=== PATIENT | female | born 1995 | race Caucasian/White ===

== ENCOUNTER 2017-01-03 05:55 | Inpatient (IN) | payer OTHER ==
[~2017-01-03] VITALS: Ht 152.4 cm; Wt 76.5 kg
[~2017-01-03 05:55] MED LIST: IBUP-1542 PO; [UNRECOGNIZED DRUG - OTHER]
[2017-01-03 06:29] VITALS: BP 122/64; PULSE 100; RESP 18; Ht 152.4 cm; Wt 76.5 kg
[2017-01-03] MEDS ORDERED: LACTATED RINGER'S 1,000 ML IV PRN (06:30)
[2017-01-03] MEDS ORDERED: PREN-93 PO (06:32)
[2017-01-03] MEDS: LACTATED RINGER'S 1,000 ML IV SCH ×3 (06:55→22:34)
[2017-01-03] MEDS ORDERED: METHYLERGONOVINE 0.2 MG INJ IM PRN ×2 (07:00→21:00)
[2017-01-03] MEDS ORDERED: AMPICILLIN 2 GM/NS (PMX) 100 ML IV ONE (07:00)
[2017-01-03] MEDS ORDERED: IBUPROFEN 600 MG TAB PO PRN (07:00)
[2017-01-03] MEDS ORDERED: MISOPROSTOL 200 MCG TAB PR PRN ×2 (07:00→21:00)
[2017-01-03] MEDS ORDERED: LIDOCAINE 1% (MPF) 30 ML INJ INJ PRN (07:00)
[2017-01-03] MEDS ORDERED: OXYTOCIN 30 UNITS/LR 500 ML IV PRN ×2 (07:00→21:00)
[2017-01-03] MEDS ORDERED: BUTORPHANOL 2 MG INJ IV PRN ×2 (07:00)
[2017-01-03] MEDS ORDERED: CARBOPROST 250 MCG INJ IM PRN ×2 (07:00→21:00)
[2017-01-03] MEDS ORDERED: ACETAMINOPHEN/CODEINE #3 TAB PO PRN ×3 (07:00→21:00)
[2017-01-03 07:27] LABS: ADD SCAN DIFF NO
[2017-01-03 07:31] LABS: BASOPHILS % 0.2 % (0.0-2.0); EOSINOPHILS # 0.1 10^3/ul (0.0-0.5); EOSINOPHILS % 0.6 % (0.0-7.0); HEMATOCRIT 33.4 % (37.0-47.0); HEMOGLOBIN 10.6 g/dl (12.0-16.0); LYMPHOCYTES # 2.4 10^3/ul (0.8-2.9); LYMPHOCYTES % 22.4 % (15.0-51.0); MEAN CORPUSCULAR HEMOGLOBIN 24.8 pg (29.0-33.0); MEAN CORPUSCULAR HGB CONC 31.7 g/dl (32.0-37.0); MEAN PLATELET VOLUME 11.5 fl (7.4-10.4); MONOCYTE # 0.8 10^3/ul (0.3-0.9); MONOCYTES % 7.5 % (0.0-11.0); NEUTROPHIL # 7.5 10^3/ul (1.6-7.5); NEUTROPHILS % 68.9 % (39.0-77.0); PLATELET COUNT 249 10^3/UL (140-415); RED BLOOD COUNT 4.28 10^6/ul (4.20-5.40); RED CELL DISTRIBUTION WIDTH 13.9 % (11.5-14.5); WHITE BLOOD COUNT 10.9 10^3/ul (4.8-10.8)
[2017-01-03 07:57] LABS: INR 1.01; PROTIME 13.3 Sec (12.2-14.2)
[2017-01-03 07:58] LABS: ALANINE AMINOTRANSFERASE 22 IU/L (13-69); ALBUMIN 3.9 g/dl (3.3-4.9); ALBUMIN/GLOBULIN RATIO 1.34; ALKALINE PHOSPHATASE 191 IU/L (42-121); ANION GAP 16 (8-16); ASPARTATE AMINO TRANSFERASE 20 IU/L (15-46); BILIRUBIN,INDIRECT 0.2 mg/dl (0-1.1); BILIRUBIN,TOTAL 0.2 mg/dl (0.2-1.3); BLOOD UREA NITROGEN 9 mg/dl (7-20); CALCIUM 9.7 mg/dl (8.4-10.2); CARBON DIOXIDE 20 mmol/L (21-31); CHLORIDE 107 mmol/L (97-110); CREATININE 0.59 mg/dl (0.44-1.00); GLUCOSE 76 mg/dl (70-220); PARTIAL THROMBOPLASTIN TIME 25.6 Sec (25.0-35.0); SODIUM 139 mmol/L (135-144); TOTAL PROTEIN 6.8 g/dl (6.1-8.1)
[2017-01-03 09:09] LABS: ADD UMIC YES; UR BILIRUBIN (Dip) NEGATIVE (NEGATIVE); UR BLOOD (Dip) 3+ (NEGATIVE); UR CLARITY SLIGHTLY CLOUDY (CLEAR); UR COLOR LT. YELLOW (YELLOW); UR GLUCOSE (Dip) NEGATIVE (NEGATIVE); UR KETONES (Dip) NEGATIVE (NEGATIVE); UR LEUKOCYTE ESTERASE (Dip) NEGATIVE (NEGATIVE); UR NITRITE (Dip) NEGATIVE (NEGATIVE); UR TOTAL PROTEIN (Dip) 1+ (NEGATIVE); UR UROBILINOGEN (Dip) 0.2 E.U./dL (0.1-1.0)
[2017-01-03 09:36] LABS: BACTERIA,URINE FEW
[2017-01-03] MEDS: AMPICILLIN 1 GM/NS (PMX) 50 ML IV SCH ×2 (11:02→15:07)
[2017-01-03] MEDS ORDERED: MINERAL OIL LIGHT 10 ML VIAL TOP ONE (15:30)
[2017-01-03] MEDS: OXYTOCIN 30 UNITS/LR 500 ML IV SCH ×2 (15:53→17:46)
--- NOTE | 2017-01-03 17:56 | HP ---
Date/Time of Note Date/Time of Note DATE: 01/03/17 TIME: 17:53 OB - History Hx of Present Free Text/Dictation admitted for C/O SROM at 0400 AM Last Menstrual Period: Jul 05, 2016 Estimated Due Date: Jan 17, 2017 : 2 Para: 1 Care: Good Care Ultrasounds: Normal mid trimester US Obstetrical Complications: None Medical Complications: None Past Family/Social History * Past Medical, Surgical, Family and Obstetric Histories reviewed from chart. Blood Type: B+ Rubella: immune RPR/VDRL: Negative GBS Status: Negative HBsAG: Negative OB Admission Exam Vital Signs Vital Signs Vital Signs Date Time Temp Pulse Resp B/P Pulse Ox O2 Delivery O2 Flow Rate FiO2 01/03/17 06:29 98.1 100 18 122/64 Room Air Physical Exam HEENT: WNL Heart: Rhythm Normal Lungs: Clear, Equal Abdomen: WNL Extremities: Normal Reflexes: Normal Cervical Dilatation: 3cm Effacement: 75% Station: -3 Membranes: Ruptured Amniotic Fluid: Clear Heart Rate: 130's Accelerations: Accelerations Present Decelerations: No Decelerations Varibility: Moderate Contractions on Admission: < 5 Minutes Apart Date/Time Contractions Began: 01/13/20174 Frequency of Contractions: q5 Duration: >60 seconds Intensity: Mild Last 72 hours Lab Results CBC & BMP 01/03/17 05:55 Liver Function Test 01/03/17 05:55 Alanine Aminotransferase (ALT/SGPT) 22 Albumin 3.9 Alkaline Phosphatase 191 H Aspartate Amino Transf (AST/SGOT) 20 Direct Bilirubin 0.00 Total Protein 6.8 OB Assessment/Plan Other Assessment: SROM at 38 weeks Other plan: Augment labor KRYSTA AGUILAR MD Jan 03, 2017 17:55
--- NOTE | 2017-01-03 17:59 | LDN ---
Date/Time of Note Date/Time of Note DATE: 01/03/17 TIME: 17:56 Delivery Summary of a viable infant over intact perineum Weeks of Gestation 38 Placenta Delivered: Spontaneously, Intact & Complete Meconium: none Episiotomy: No Laceration repair: paraurethral lacaration and superficial vulvar laceration were closed with 2 0 Chromic Anesthesia type: Local Sponge & Needle done & correct: Yes All needle counts correct: Yes Any foreign bodies felt in the: No Problems: Infant Delivery Information Sex Sex: male Apgars 1 Minute: 9 5 Minute: 9 Suctioning Nose & mouth suctioned at aixa: Yes Delee suction performed: No Umbilical Cord Umbilical cord with: 3 Vessels Cord presentations: no nuchal cord Cord Blood was obtained: Yes Mother & Baby Disposition Disposition Mom & Baby to Maternity; Good: Yes (mother and baby were recovered in good condition ) Mom transferred to: Other (maternity ) Baby to NICU: No KRYSTA AGUILAR MD Jan 03, 2017 17:59
[2017-01-03] MEDS ORDERED: OXYTOCIN 30 UNITS/LR 500 ML IV SCH (18:30)
[2017-01-03 20:55] VITALS: BP 126/65; PULSE 80; RESP 19
[2017-01-03] MEDS: LACTATED RINGER'S 1,000 ML IV* SCH (20:56)
[2017-01-03] MEDS ORDERED: WITCH HAZEL/GLYCERIN PAD PR PRN (21:00)
[2017-01-03] MEDS ORDERED: ZOLPIDEM 5 MG TAB PO PRN (21:00)
[2017-01-03] MEDS ORDERED: DIBUCAINE 1% 30 GM OINT PR PRN (21:00)
[2017-01-03] MEDS ORDERED: BENZOCAINE 20% 56 ML SPRAY TOP PRN (21:00)
[2017-01-03] MEDS ORDERED: LANOLIN 7 GM TUBE TOP PRN (21:00)
[2017-01-03] MEDS: MAGNESIUM HYDROXIDE 30ML CUP PO SCH (21:25)
[2017-01-03] MEDS: SENNA/DOCUSATE NA (8.6MG/50MG) TAB PO SCH (21:25)
[2017-01-03] MEDS: IBUPROFEN 600 MG TAB PO SCH (23:52)
[2017-01-04] VITALS: BP 115/51; PULSE 68; RESP 17
[2017-01-04 03:50] VITALS: BP 101/57; PULSE 76; RESP 18
[2017-01-04] MEDS: LACTATED RINGER'S 1,000 ML IV* SCH (04:56)
[2017-01-04] MEDS: IBUPROFEN 600 MG TAB PO SCH ×4 (05:41→23:43)
[2017-01-04 07:56] LABS: ADD SCAN DIFF NO
[2017-01-04 08:00] VITALS: BP 110/62; PULSE 75; RESP 20
[2017-01-04 08:01] LABS: BASOPHIL # 0.1 10^3/ul (0.0-0.1); BASOPHILS % 0.3 % (0.0-2.0); EOSINOPHILS # 0.1 10^3/ul (0.0-0.5); EOSINOPHILS % 0.3 % (0.0-7.0); HEMATOCRIT 32.5 % (37.0-47.0); HEMOGLOBIN 10.5 g/dl (12.0-16.0); LYMPHOCYTES # 2.9 10^3/ul (0.8-2.9); LYMPHOCYTES % 19.3 % (15.0-51.0); MEAN CORPUSCULAR HEMOGLOBIN 25.4 pg (29.0-33.0); MEAN CORPUSCULAR HGB CONC 32.3 g/dl (32.0-37.0); MEAN CORPUSCULAR VOLUME 78.7 fl (82.0-101.0); MEAN PLATELET VOLUME 11.8 fl (7.4-10.4); MONOCYTES % 6.7 % (0.0-11.0); NEUTROPHIL # 10.8 10^3/ul (1.6-7.5); PLATELET COUNT 217 10^3/UL (140-415); RED BLOOD COUNT 4.13 10^6/ul (4.20-5.40); RED CELL DISTRIBUTION WIDTH 14.1 % (11.5-14.5); WHITE BLOOD COUNT 14.9 10^3/ul (4.8-10.8)
[2017-01-04] MEDS: MAGNESIUM HYDROXIDE 30ML CUP PO SCH ×2 (09:23→21:00)
[2017-01-04] MEDS: SENNA/DOCUSATE NA (8.6MG/50MG) TAB PO SCH ×2 (09:23→21:00)
[2017-01-04 11:10] LABS: RUBELLA ANTIBODY - IGG <0.90 index
[2017-01-04 16:00] VITALS: BP 133/66; PULSE 74; RESP 19
--- NOTE | 2017-01-04 18:45 | DS ---
Date/Time of Note Date/Time of Note home next day DATE: 01/04/17 TIME: 18:43 Obstetrical Discharge Record Final Diagnosis Final Diagnosis: Term delivered Other Final Diagnosis S/P vaginal delivery Vaginal Delivery Obstetrical Delivery: Spontaneous, Laceration, Repaired Complications Augmentation: Yes Condition on Discharge Physical Assessment Last Vitals: see nurses notes Voiding: Yes Bowel Movement: Yes Breast: Soft, non-tender, Filling Fundus: Firm Abdomen and Incision: soft BS+ Episiotomy: NA Calf Tenderness: No Patient Condition: Good KRYSTA AGUILAR MD Jan 04, 2017 18:44
--- NOTE | 2017-01-04 18:46 | PD.PPDC ---
[employer] Discharge Instruction Provider Information Physician Information 21 y/o female had vaginal delivery Diagnosis Final Diagnosis: S/P vaginal delivery Condition Patient Condition: Good Diet Diet: Resume Regular Diet Activity/Restrictions Activity: Normal Activity May Shower Restrictions: Nothing in the Vagina Return to Work or School: Feb 20, 2017 Follow-up Follow-up with Physician: 4, Week/Weeks (in clinic ) Return to clinic for OB Instructions: Breast Tenderness Depression KRYSTA AGUILAR MD Jan 04, 2017 18:46
[2017-01-04] MEDS ORDERED: IBUP-1542 PO (18:47)
[2017-01-04 19:45] VITALS: BP 102/59; PULSE 76; RESP 18
[2017-01-05 03:40] VITALS: BP 103/57; PULSE 70; RESP 19
[2017-01-05] MEDS: IBUPROFEN 600 MG TAB PO SCH ×2 (05:33→12:00)
[2017-01-05 08:33] VITALS: BP 108/52; PULSE 61; RESP 18
[2017-01-05] MEDS ORDERED: MEASLES,MUMPS,RUBELLA VACCINE INJ SC* ONE (09:00)
[2017-01-05] MEDS: MAGNESIUM HYDROXIDE 30ML CUP PO SCH (09:00)
[2017-01-05] MEDS ORDERED: VARICELLA VACCINE LIVE/PF 1,350 UNIT/0.5 ML ML SC* ONE (09:00)
[2017-01-05] MEDS: SENNA/DOCUSATE NA (8.6MG/50MG) TAB PO SCH (09:00)
[2017-01-05] MEDS ORDERED: DIPHTH/TET/ACEL PERTUSS (ADULT) 0.5 ML VIAL IM* ONE (09:00)
== END 2017-01-05 12:15 | disposition home or self-care (01) | DRG 775 ==
LOC: OBT 05:55 → L-D 05:55 → OBT 06:35 → PP1 20:31
PROVIDERS: ADMIT Obstetrics & Gynecology; ATTEND Obstetrics & Gynecology
PROC: 10E0XZZ Delivery of Products of Conception, External Approach (ICD-10-PCS; principal; 2017-01-03)
PROC: 0UQMXZZ Repair Vulva, External Approach (ICD-10-PCS; 2017-01-03)
PROC: 3E00X4Z Introduction of Serum, Toxoid and Vaccine into Skin and Mucous Membranes, External Approach (ICD-10-PCS; 2017-01-05)
DX: O71.82 Other specified trauma to perineum and vulva (principal); Z23 Encounter for immunization; Z3A.38 38 weeks gestation of pregnancy; Z37.0 Single live birth
CPT/HCPCS: 80053; 81001; 85025; 85610; 85730; 86592; 86703; 86762; 86900; 86901; 87086; 87340; 90715; 90716; 96360; 99464; G0463; J0290; J0595; J2590; J7120

== ENCOUNTER 2019-03-26 08:25 | Emergency (ER) | payer OTHER ==
[~2019-03-26] VITALS: Ht 152.4 cm; Wt 72.7 kg
[~2019-03-26 08:25] MED LIST changes: +FLUT9.9S NASAL; +PREN-93 PO; -[UNRECOGNIZED DRUG - OTHER]
[2019-03-26 08:41] VITALS: BP 129/70; PULSE 74; RESP 20; Ht 152.4 cm; Wt 72.7 kg
== END 2019-03-26 09:31 | disposition home or self-care (01) ==
LOC: FTE 08:25
DX: J06.9 Acute upper respiratory infection, unspecified (principal)
CPT/HCPCS: 99282